=== PATIENT | female | born 1980 | race Caucasian/White ===

== ENCOUNTER 2024-12-10 18:45 | Emergency (ER) | payer BC, SELFPAY ==
[2024-12-10 19:23] VITALS: BP 133/85; PULSE 85; RESP 16; TEMP 36.7; O2SAT 97; BMI 32.2
[2024-12-10] MEDS: KETOROLAC INJ 60 MG/2 ML VIAL 30 MG IM (20:24)
[2024-12-10] MEDS: AMOXICILLIN 250 MG CAPSULE 500 MG PO (20:25)
--- NOTE | 2024-12-10 20:26 | EDNOTE_ITS ---
ED Dental RME/HPI General Chief complaint: Dental/Oral/Throat Stated complaint: BROKE A TOOTH, THROBBING R) MANDIBLE SINCE YEST Time Seen by Provider: 12/10/24 19:43 Arrival date/time: 12/10/24 18:45 44-year-old female presents to the ED with a complaint of right upper dental pain. She states that tooth #4 broke off yesterday and she is complaining of severe pain. Her pain extends up into her right cheek. She denies any fever or chills, nausea or vomiting. She does have a dentist here in town. Related Data Previous Rx's ?Medication ?Instructions ?Recorded hydrocodone 5 mg-acetaminophen 325 1 tab PO BID PRN pa in #10 tabs 08/21/21 mg tablet ibuprofen 800 mg tablet 800 mg PO TID PRN pain #30 t abs 08/21/21 oxycodone-acetaminophen 5 mg-325 1 tab PO TID PRN pain #15 tabs 03/15/22 mg tablet (Percocet) cyclobenzaprine 10 mg tablet 10 mg PO TID PRN muscle s pasm #30 11/28/22 tabs ibuprofen 600 mg tablet 600 mg PO Q6H PRN pain #30 t abs 11/28/22 amoxicillin 875 mg tablet 875 mg PO BID #14 tabs 08/23 meloxicam 7.5 mg tablet 7.5 mg PO QDAY #10 tabs 11/11 amoxicillin 875 mg tablet 875 mg PO BID DENTAL ABSCESS #20 12/10/24 tabs meloxicam 15 mg tablet 15 mg PO QDAY PAIN #7 tabs 0 12/10/24 Allergies Allergy/AdvReac Type Severity Reaction Status Date / Time No Known Allergies Allergy Verified 12/10/24 18:48 ED Exam Narrative Physical exam: No facial cellulitis noted. No periorbital tenderness noted. Course Orders Category Date Time Status Amoxicillin Cap [Amoxil Cap] Med 12/10/24 20:12 Discontinued 500 mg PO X1 ONE Ketorolac Inj [Toradol Inj] Med 12/10/24 20:12 Discontinued 30 mg IM X1 ONE Vital Signs Vital signs: Vital Signs Temperature 98.1 F 12/10/24 19:23 Pulse Rate 85 12/10/24 19:23 Respiratory Rate 16 12/10/24 19:23 Blood Pressure 133/85 H 12/10/24 19:23 Pulse Oximetry (%) 97 12/10/24 19:23 Oxygen Delivery Method Room Air 12/10/24 19:23 Dental / Oral Medications / Prescriptions Medication administrations:: Medication Administration History Discontinued Medications Amoxicillin (Amoxicillin 250 Mg Capsule) 500 mg PO X1 ONE Stop: 12/10/24 20:13 Last Admin: 12/10/24 20:25 Dose: 500 mg Documented By: DMITRY Ketorolac Tromethamine (Ketorolac Inj 60 Mg/2 Ml Vial) 30 mg IM X1 ONE Stop: 12/10/24 20:13 Last Admin: 12/10/24 20:24 Dose: 30 mg Documented By: OA Discharge Plan Plan Patient Disposition: HOME (Self Care) Disposition Comment: STABLE Prescriptions/Referrals Prescriptions/Med Rec: New amoxicillin 875 mg tablet 875 mg PO BID Qty: 20 0RF meloxicam 15 mg tablet 15 mg PO QDAY Qty: 7 0RF No Action ibuprofen 800 mg tablet 800 mg PO TID PRN (Reason: pain) Qty: 30 0RF hydrocodone-acetaminophen 5-325 mg tablet 1 tab PO BID MDD 10 PRN (Reason: pain) Qty: 10 0RF oxycodone-acetaminophen [Percocet] 5-325 mg tablet 1 tab PO TID MDD 4 g APAP PRN (Reason: pain) Qty: 15 0RF ibuprofen 600 mg tablet 600 mg PO Q6H PRN (Reason: pain) Qty: 30 0RF cyclobenzaprine 10 mg tablet 10 mg PO TID PRN (Reason: muscle spasm) Qty: 30 0RF amoxicillin 875 mg tablet 875 mg PO BID Qty: 14 0RF meloxicam 7.5 mg tablet 7.5 mg PO QDAY Qty: 10 0RF Referrals: Armand Bear MD [Primary Care Provider] - In 1 week Problem List Clinical Impression: Dental abscess Patient/Caregiver Discharge Instructions Education Materials: Dental Abscess Additional Instructions: Follow-up with your primary care physician in 24 to 48 hours. Return to the ED for any new or worsening symptoms. Print Language: Persian Stand Alone Forms: Nette Award Info., Patient Portal Info Letter PA/PLANNING ADVISOR Supervising Physician PA/PLANNING ADVISOR Supervising Physician: Dr. Gonzalez
[2024-12-10 20:41] VITALS: RESP 18
== END 2024-12-10 20:43 | disposition home or self-care (01) ==
PROVIDERS: Emergency Provider Emergency Medicine; PCP Family Medicine
DX: K04.7 Periapical abscess without sinus (principal)
CPT/HCPCS: 96372; 99283; J1885; A9270

== ENCOUNTER 2025-07-30 09:11 | Emergency (ER) | payer MEDICAID, SELFPAY ==
[2025-07-30 10:10] VITALS: BP 136/94; PULSE 100; RESP 18; TEMP 36.7; O2SAT 98; BMI 32.8
--- NOTE | 2025-07-30 10:14 | EDNOTE_ITS ---
Upper Respiratory Inf. RME/HPI General Chief Complaint: Flu Like Symptoms Stated Complaint: Cough X 4 days Time Seen by Provider: 07/30/25 10:14 Arrival date/time: 07/30/25 09:11 RME / HPI RME / HPI Narrative: 44-year-old female complaining of cough, congestion and increased sputum for the past 4 days. Patient stopped smoking about a year ago however she was a smoker before that for over 10 years. Denies any nausea, vomiting, earache, sore throat, chest pain. Related Data Previous Rx's ?Medication ?Instructions ?Recorded hydrocodone 5 mg-acetaminophen 325 1 tab PO BID PRN pa in #10 tabs 08/21/21 mg tablet ibuprofen 800 mg tablet 800 mg PO TID PRN pain #30 t abs 08/21/21 oxycodone-acetaminophen 5 mg-325 1 tab PO TID PRN pain #15 tabs 03/15/22 mg tablet (Percocet) cyclobenzaprine 10 mg tablet 10 mg PO TID PRN muscle s pasm #30 11/28/22 tabs ibuprofen 600 mg tablet 600 mg PO Q6H PRN pain #30 t abs 11/28/22 amoxicillin 875 mg tablet 875 mg PO BID #14 tabs 08/23 meloxicam 7.5 mg tablet 7.5 mg PO QDAY #10 tabs 11/11 amoxicillin 875 mg tablet 875 mg PO BID DENTAL ABSCESS #20 12/10/24 tabs meloxicam 15 mg tablet 15 mg PO QDAY PAIN #7 tabs 0 12/10/24 albuterol sulfate 90 mcg/actuation 2 puff inhalation Q 6H PRN 07/30/25 aerosol inhaler (Ventolin HFA) shortness of breath or wheezing #8.5 grams azithromycin 250 mg tablet See Rx Instructions PO .COM PLEX #6 07/30/25 tabs prednisone 20 mg tablet See Taper PO QDAY #10 tabs 1 09/30/24 Allergies Allergy/AdvReac Type Severity Reaction Status Date / Time No Known Allergies Allergy Verified 07/30/25 09:14 ED Exam Narrative Physical exam: Constitutional: Patient alert and oriented. Well appearing. No acute distress. Not toxic appearing. Head: Normocephalic, atraumatic. Eyes: Periorbital regions bilaterally normal to inspection. Conjunctiva clear bilaterally. Sclera anicteric bilaterally. Pupils equal, round, reactive to light bilaterally. Extraocular movements intact bilaterally. Ears: External ears normal to inspection bilaterally. No mastoid tenderness bilaterally. EAC without edema or exudate bilaterally. TMs without erythema or bulging. Mouth/Throat: Mucous membranes moist. No stridor or muffled voice. Uvula midline. Rise and fall of soft palate normal. No tonsillar edema or exudate. No peritonsillar fullness. No trismus. Handling secretions without difficulty. Airway widely patent. Neck: Supple. Trachea midline. No JVD. No nuchal rigidity. No midline tenderness or step-offs. Normal range of motion. Respiratory: Normal effort. No accessory muscle use or respiratory distress. Positive scant rhonchi and expiratory wheezes noted throughout. Cardiovascular: RRR. Normal S1/S2. No murmurs or rubs. Radial pulses intact bilaterally. Abdomen: Soft. Non-distended. Non-tender throughout. No pulsatile mass. No guarding or rebound. Negative Martel?s sign. Negative McBurney?s point tenderness. Negative Rovsing?s. Back: No midline tenderness or step-offs. No CVA tenderness to palpation josefina aterally. Upper Extremities: No gross deformities. Lower Extremities: No gross deformities. No edema or calf tenderness. Neuro: Speech normal. No gross motor or sensory deficits to upper or lower e xtremities bilaterally. GCS 15. CN II?XII grossly intact. Skin: Warm, dry, normal color. Psych: Normal affect. Cooperative. Normal insight. Course Quality Measures none Orders Category Date Time Status XR chest 2V Stat Exams 07/30/25 10:17 Completed HCG Qualitative,Urine Stat Lab 07/30/25 11:46 Completed Influenza A & B Rapid Panel Stat Lab 07/30/25 10:46 Completed ALBUTEROL RT 0.5ml [Proventil Rt 0.5ml] Med 07/30/25 10:18 Discontinued 2.5 mg INH X1 ONE Acetaminophen Tab [Tylenol Tab] Med 07/30/25 10:18 Discontinued 650 mg PO X1 ONE Ipratropium [place] Rt Melita [Atrovent Rt Melita] Med 07/30/25 10:18 Discontinued 0.5 mg INH X1 ONE Sodium Chloride Rt Melita 0.9% [NS Rt Melita 0.9%] Med 07/30/25 10:18 Discontinued 3 ml INH PRN PRN Sodium Chloride Rt Melita 0.9% [NS Rt Melita 0.9%] Med 07/30/25 10:18 Discontinued 3 ml INH PRN PRN Sodium Chloride Rt Melita 0.9% [NS Rt Melita 0.9%] Med 07/30/25 10:18 Discontinued 3 ml INH PRN PRN predniSONE Med 07/30/25 10:18 Discontinued 60 mg PO X1 ONE Vital Signs Vital signs: Vital Signs Temperature 98.1 F 07/30/25 10:10 Pulse Rate 100 07/30/25 10:10 Respiratory Rate 18 07/30/25 10:10 Blood Pressure 136/94 H 07/30/25 10:10 Pulse Oximetry (%) 98 07/30/25 10:10 Oxygen Delivery Method Room Air 07/30/25 10:10 Upper Respiratory Infection MDM Narrative MDM Narrative:: MDM Most likely diagnosis acute bronchitis vs asthma exacerbation vs undiagnosed [employer] D exacerbation. The patient has evidence of an acute bronchospastic process with clinical improvement after treatment (bronchodilator and/or steroids). The patient was reassessed after therapy and noted to have objective improvement on exam. The patient has access to appropriate ongoing therapy after discharge. Antibiotics were considered and are indicated as there is increased sputum production Other serious causes of shortness of breath were considered: CHF doubted given lack of edema, JVD, or signs of volume overload. PE considered but unlikely given low Wells score and absence of pleuritic chest pain. Pneumonia doubted given no focal findings on exam and negative XR Admission was considered, but based on history, exam, and clinical improvement after therapy, outpatient management is appropriate. The patient was counseled that if symptoms worsen?including increased shortness of breath, chest pain, or syncope?they should return immediately for reassessment. Close follow-up with PMD in 1-2 days is recommended. At the time of reassessment prior to discharge, the patient remains alert and oriented ?3 with GCS 15. Vitals are normal, pain is controlled, and the patient is tolerating oral intake without nausea or vomiting. The patient is agreeable to discharge and verbalizes understanding of the diagnosis, studies, treatment plan, medications (including side effects/precautions), and strict ER return precautions as discussed in the ED. All concerns were addressed, and the patient is comfortable with the plan. Patient data External records reviewed:: [facility] previous records Clinical information provided by:: patient Social determinants that could affect healthcare access:: none Patient has the following chronic illnesses:: As noted How is presenting disease/condition affected by chronic disease/condition?: exacerbated by Evaluation data The following diagnostics were reviewed and interpreted by me:: lab results and radiology exam(s) Lab and/or radiology exams considered but not ordered:: Additional Labs and radiology considered, but not ordered as they were not clinically indicated at this time. Interpretation Summary: As noted Medications / Prescriptions Medications or Prescriptions considered but not ordered:: I ordered medications based on the patient?s clinical needs and assessment, as documented in the chart. For medications not prescribed, they were not indicated for the patient's current condition, and I determined they were unnecessary at this time to avoid potential risks or complications. Medication administrations:: Medication Administration History Discontinued Medications Acetaminophen (Acetaminophen 325 Mg Tablet) 650 mg PO X1 ONE Stop: 07/30/25 10:19 Last Admin: 07/30/25 10:38 Dose: 650 mg Documented By: MARY Albuterol (Albuterol Rt 2.5 Mg/0.5 Ml Nebu) 2.5 mg INH X1 ONE Stop: 07/30/25 10:19 Last Admin: 07/30/25 10:39 Dose: 2.5 mg Documented By: EV Ipratropium [place] (Ipratropium Rt 0.5 Mg/ 2.5 Ml Nebu) 0.5 mg INH X1 ONE Stop: 07/30/25 10:19 Last Admin: 07/30/25 10:39 Dose: 0.5 mg Documented By: EV Prednisone (Prednisone 20 Mg Tablet) 60 mg PO X1 ONE Stop: 07/30/25 10:19 Last Admin: 07/30/25 10:38 Dose: 60 mg Documented By: MARY Sodium Chloride (Sodium Chloride Rt Melita 0.9% 3 Ml Nebu) 3 ml INH PRN PRN PRN Reason: SOLN Stop: 08/29/25 10:17 Sodium Chloride (Sodium Chloride Rt Melita 0.9% 3 Ml Nebu) 3 ml INH PRN PRN PRN Reason: SOLN Stop: 08/29/25 10:17 Sodium Chloride (Sodium Chloride Rt Melita 0.9% 3 Ml Nebu) 3 ml INH PRN PRN PRN Reason: SOLN Stop: 08/29/25 10:17 As noted Consultations Consultation(s) initiated? (list below): No Diagnosis Upper Respiratory Differential Diagnosis: upper respiratory infection, sinusitis, viral infection and bronchitis Most likely diagnosis given after review of the tests above:: Bacterial bronchitis Admission Indicated Admission indicated?: not indicated Admission Request Was there a request for admission?: No Disposition Plan Disposition Plan: Discharge Discharge Attestation Discharge Attestation: The patient and all family members were given an opportunity to ask questions and understood the discharge instructions. Discharge instructions specifically effects, indications for sooner follow up or return to the emergency department, and the expected course of current diagnosis. Patient condition: Stable Discharge Plan Plan Patient Disposition: HOME (Self Care) Patient condition on transfer: Stable Prescriptions/Referrals Prescriptions/Med Rec: New prednisone 20 mg tablet See Taper PO QDAY Qty: 10 0RF Taper: Prednisone Taper 20 mg DAILY for 2 Days and 0 Hour 10 mg DAILY for 2 Days and 0 Hour 5 mg DAILY for 7 Days and 0 Hour albuterol sulfate [Ventolin HFA] 90 mcg/actuation HFA aerosol inhaler 2 puff inhalation Q6H PRN (Reason: shortness of breath or wheezing) Qty: 8.5 0RF azithromycin 250 mg tablet See Rx Instructions .ROUTE .COMPLEX Qty: 6 0RF Rx Instructions: For 250 mg dose pack: take 500 mg today (day 1), then 250 mg for 4 days (days 2-5) No Action ibuprofen 800 mg tablet 800 mg PO TID PRN (Reason: pain) Qty: 30 0RF hydrocodone-acetaminophen 5-325 mg tablet 1 tab PO BID MDD 10 PRN (Reason: pain) Qty: 10 0RF oxycodone-acetaminophen [Percocet] 5-325 mg tablet 1 tab PO TID MDD 4 g APAP PRN (Reason: pain) Qty: 15 0RF ibuprofen 600 mg tablet 600 mg PO Q6H PRN (Reason: pain) Qty: 30 0RF cyclobenzaprine 10 mg tablet 10 mg PO TID PRN (Reason: muscle spasm) Qty: 30 0RF amoxicillin 875 mg tablet 875 mg PO BID Qty: 20 0RF meloxicam 15 mg tablet 15 mg PO QDAY Qty: 7 0RF amoxicillin 875 mg tablet 875 mg PO BID Qty: 14 0RF meloxicam 7.5 mg tablet 7.5 mg PO QDAY Qty: 10 0RF Referrals: Miguel Ángel Camarillo MD [Primary Care Provider] - In 1 week Problem List Clinical Impression: Cough Patient/Caregiver Discharge Instructions Education Materials: ED Cough Chronic Uncertain Cause Adult Additional Instructions: Follow up with your primary medical doctor within 24 hours. Return to the Emergency Room immediately for any new, worsening, continuing symptoms or any concerns at all. Return to the Emergency Room within 24 hours if you are unable to follow up with your primary medical doctor within 24 hours. Print Language: Greek Stand Alone Forms: Nette Award Info., Work/School Release, Patient Portal Info Letter PA/HAY Supervising Physician PA/SPACE TECHNOLOGIST Supervising Physician: Dr. Senior
--- NOTE | 2025-07-30 10:17 | XR_ITS ---
PA and lateral chest film on 07/30/2025 at 10:23 a.m. CLINICAL HISTORY: Cough for 4 days and fever for 1 day COMPARISON STUDY: 04/2019 Findings: Both lungs and pleural space are clear normal. The thoracic spine appears unremarkable. Upright chest film on 07/30/2025 at 10:23 a.m. IMPRESSION: Good-quality chest film is entirely normal
[2025-07-30] MEDS: ACETAMINOPHEN 325 MG TABLET 650 MG PO (10:38)
[2025-07-30 10:39] VITALS: PULSE 87
[2025-07-30] MEDS: IPRATROPIUM RT 0.5 MG/ 2.5 ML NEBU INH (10:39)
[2025-07-30] MEDS: ALBUTEROL RT 2.5 MG/0.5 ML NEBU INH (10:39)
[2025-07-30 10:41] VITALS: PULSE 95; RESP 18; O2SAT 100
[2025-07-30 11:18] LABS: Influenza A Ag Negative; Influenza B Ag Negative
[2025-07-30 11:58] LABS: HCG Qualitative,Urine Negative
[2025-07-30 13:05] VITALS: BP 145/83; PULSE 87; RESP 16; TEMP 36.7; O2SAT 97
== END 2025-07-30 13:05 | disposition home or self-care (01) ==
PROVIDERS: Emergency Provider Physician Assistant; PCP Family Medicine
DX: R05.9 Cough, unspecified (principal)
CPT/HCPCS: 71046; 81025; 87502; 94640; 99283; J7512; J7602; J7644; A9270; J7611